=== PATIENT | male | born 1995 | race Caucasian/White ===

== ENCOUNTER 2017-03-18 01:09 | Emergency (ER) | payer SELFPAY ==
[2017-03-18 01:54] VITALS: BP 128/69; PULSE 82; TEMP 97.4; BMI 28.3
[2017-03-18] MEDS ORDERED: TETRACAINE 0.5% HCL 0.6ML DROPPER.BOTTLE OS ONE (02:06)
[2017-03-18] MEDS ORDERED: FLUORESCEIN NA 1 EA STRIP OS ONE (02:06)
--- NOTE | 2017-03-18 02:15 | PDOC ---
History of Present Illness - General Chief Complaint: Eye Problem Stated Complaint: LEFT EYE INJURY Time Seen by Provider: 03/18/17 02:01 History Source: Patient Exam Limitations: No Limitations - History of Present Illness Initial Comments: 03/18/17 02:13 Patient is a 21M with no significant medical history here today complaining of left eye pain starting today. He states that he feels like something is in his eye. 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 He does not always wear eye protection. He states that he can move his eyes without pain. He denies nausea, vomiting, fevers and chills. He denies chest pain, shortness of breath and abdominal pain. Past History - Past Medical History Allergies/Adverse Reactions: Allergies Allergy/AdvReac Type Severity Reaction Status Date / Time No Known Allergies Allergy Verified 03/18/17 01:52 Home Medications: Ambulatory Orders Polymyxin B Sulfate/Tmp [Polytrim Opthalmic Solution -] 1 drop OP QID #1 bottle 03/18/17 - Immunization History Immunization Up to Date: Yes - Suicide/Smoking/Psychosocial Hx Smoking History: Never smoked Have you smoked in the past 12 months: No Information on smoking cessation initiated: No Hx Alcohol Use: No Drug/Substance Use Hx: No Review of Systems - Review of Systems Comments:: 03/18/17 02:38 GENERAL/CONSTITUTIONAL: No fever or chills. No weakness. HEAD, EYES, EARS, NOSE AND THROAT: No change in vision. Positive for eye pain and redness in left eye CARDIOVASCULAR: No chest pain or shortness of breath RESPIRATORY: No cough, wheezing, or hemoptysis. GASTROINTESTINAL: No nausea, vomiting, diarrhea or constipation. GENITOURINARY: No dysuria, frequency, or change in urination. MUSCULOSKELETAL: No joint or muscle swelling or pain. No neck or back pain. SKIN: No rash NEUROLOGIC: No headache, vertigo, loss of consciousness, or change in strength/ sensation. ENDOCRINE: No increased thirst. No abnormal weight change HEMATOLOGIC/LYMPHATIC: No anemia, easy bleeding, or history of blood clots. ALLERGIC/IMMUNOLOGIC: No hives or skin allergy. *Physical Exam - Vital Signs Last Vital Signs Temp Pulse Resp BP Pulse Ox 97.4 F L 82 20 128/69 98 03/18/17 01:52 03/18/17 01:52 03/18/17 01:52 03/18/17 01:52 03/18/17 01:52 - Physical Exam Comments: 03/18/17 02:52 GENERAL: Awake, alert, and fully oriented, in no acute distress HEAD: No signs of trauma, normocephalic, atraumatic EYES: PERRLA, EOMI, sclera anicteric, injected conjunctiva in left eye, slit lamp shows no foreign body, lid eversion shows no foreign body, fluorescin stain small speckling ENT: Auricles normal inspection, hearing grossly normal, nares patent, oropharynx clear without exudates. Moist mucosa LUNGS: No distress, speaks full sentences, clear to auscultation bilaterally HEART: Regular rate and rhythm, normal S1 and S2, no murmurs, rubs or gallops, peripheral pulses normal and equal bilaterally. ABDOMEN: Soft, nontender, normoactive bowel sounds. No guarding, no rebound. No masses EXTREMITIES: Normal inspection, Normal range of motion, no edema. No clubbing or cyanosis. NEUROLOGICAL: Cranial nerves II through XII grossly intact. Normal speech, normal gait, no focal sensorimotor deficits SKIN: Warm, Dry, normal turgor, no rashes or lesions noted. 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 Exam notable only for small amount of speckling on fluorescin stain. Will treat with polytrim opthalmic drops. Will discharge with prescription and pcp follow up. *DC/Admit/Observation/Transfer Diagnosis at time of Disposition: Corneal abrasion Qualifiers: Encounter type: initial encounter Laterality: left Qualified Code(s): S05.02XA - Injury of conjunctiva and corneal abrasion without foreign body, left eye, initial encounter - Discharge Dispostion Disposition: HOME Condition at time of disposition: Good Admit: No - Prescriptions Prescriptions: Polymyxin B Sulfate/Tmp [Polytrim Opthalmic Solution -] 1 drop OP QID #1 bottle - Patient Instructions Printed Discharge Instructions: DI for Corneal Abrasion
[2017-03-18] MEDS ORDERED: IBUPROFEN 400 MG TABLET (FP) PO ONE ×2 (02:21→02:25)
[2017-03-18] MEDS ORDERED: TETRACAINE 0.5% OPHTH SOLN 2 ML BOTTLE ONE (02:25)
[2017-03-18] MEDS ORDERED: FLUORESCEIN NA 1 EA STRIP ONE (02:25)
--- NOTE | 2017-03-18 03:00 | PDOC ---
Attending Attestation - Resident Resident Name: Km Berger - ED Attending Attestation I have performed the following: I have examined & evaluated the patient, The case was reviewed & discussed with the resident, I agree w/resident's findings & plan, Exceptions are as noted - HPI HPI: 03/18/17 02:54 21 yo male with no pmhx here with c/o left eye foreign body sensation after welding. thinks he got somethings in his eye. no change to vision. no contacts. - Physicial Exam PE: 03/18/17 02:59 awakae alert. left eye injected. perrl. eomi. no fb visualized flourescin placed, slit lamp exam. lid everted. no fb seen. small speckles uptake. cardiac rrr no mrg.lungs ctab. - Medical Decision Making 03/18/17 03:00 plan will treat with polytrim
== END 2017-03-18 03:07 | disposition home or self-care (01) ==
LOC: JER 01:09
DX: S05.02XA Injury of conjunctiva and corneal abrasion without foreign body, left eye, initial encounter (principal); X58.XXXA Exposure to other specified factors, initial encounter; Y93.9 Activity, unspecified; Y92.9 Unspecified place or not applicable
CPT/HCPCS: 99281-25

== ENCOUNTER 2017-03-30 22:18 | Emergency (ER) | payer SELFPAY ==
[2017-03-30 22:41] VITALS: BP 124/59; PULSE 78; TEMP 97.9; BMI 26.7
[2017-03-30] MEDS ORDERED: IBUPROFEN 600 MG TABLET (FP) PO ONE ×2 (23:50→23:52)
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
--- NOTE | 2017-03-31 00:21 | PDOC ---
*Physical Exam - Vital Signs Last Vital Signs Temp Pulse Resp BP Pulse Ox 97.9 F 78 18 124/59 100 03/30/17 22:38 03/30/17 22:38 03/30/17 22:38 03/30/17 22:38 03/30/17 22:38 ED Treatment Course - Medications Given in the ED: ED Medications Discontinued Medications Generic Name Dose Route Start Last Admin Trade Name Freq PRN Reason Stop Dose Admin Ibuprofen 600 mg 03/30/17 23:50 03/30/17 23:56 Motrin - PO 03/30/17 23:51 600 mg ONCE ONE Administration Medical Decision Making - Medical Decision Making 03/31/17 00:21 agree with care from WALDO Barbour
== END 2017-03-31 02:25 | disposition home or self-care (01) ==
LOC: JER 22:18
DX: S29.8XXA Other specified injuries of thorax, initial encounter (principal); S21.202A Unspecified open wound of left back wall of thorax without penetration into thoracic cavity, initial encounter; W31.3XXA Contact with prime movers, initial encounter; Y93.H3 Activity, building and construction; Y92.69 Other specified industrial and construction area as the place of occurrence of the external cause; Y99.0 Civilian activity done for income or pay
CPT/HCPCS: 71101-TC; 72100-TC; 99283-25

== ENCOUNTER 2023-12-11 18:33 | Emergency (ER) | payer SELFPAY ==
[2023-12-11 18:57] VITALS: BP 127/72; PULSE 75; RESP 18; TEMP 98.1; BMI 31.0
[2023-12-11] MEDS ORDERED: FLUORESCEIN NA 1 EA STRIP ONE (20:00)
[2023-12-11] MEDS ORDERED: TETRACAINE 0.5% OPHTH SOLN 2 ML BOTTLE ONE (20:00)
[2023-12-11] MEDS ORDERED: ERYTHROMYCIN 0.5% OPHTHALMIC OINTMENT 3.5 GM TUBE ONE (20:01)
[2023-12-11] MEDS: FLUORESCEIN NA 1 EA STRIP OD ONE (20:05)
[2023-12-11] MEDS: TETRACAINE 0.5% HCL 0.6ML DROPPER.BOTTLE OD ONE (20:05)
[2023-12-11] MEDS: ERYTHROMYCIN 0.5% OPHTHALMIC OINTMENT 3.5 GM TUBE OD SCH (20:05)
[2023-12-12] MEDS ORDERED: ERYTHROMYCIN 0.5% OPHTHALMIC OINTMENT 3.5 GM TUBE OD ONE (20:15)
== END 2023-12-11 20:29 | disposition home or self-care (01) ==
LOC: FER 18:33
DX: H00.011 Hordeolum externum right upper eyelid (principal)
CPT/HCPCS: 99283-25